=== PATIENT | male | born 1980 | race Caucasian/White ===

== ENCOUNTER 2023-03-02 10:31 | Emergency (ER) | payer BC, OTHER ==
[~2023-03-02] VITALS: Ht 170.2 cm; Wt 81.0 kg
[2023-03-02] MEDS ORDERED: DexAMETHasone SOD PHOS 10MG/1ML VIAL INJ IV ONE (11:00)
[2023-03-02] MEDS ORDERED: ALBUTEROL SULF 2.5 MG/0.5ML(0.5%) NEB SOLN HHN ONE (11:00)
[2023-03-02] MEDS ORDERED: IPRATROPIUM BROM 0.5 MG/2.5ML INH SOL HHN ONE (11:00)
[2023-03-02] MEDS ORDERED: ASPirin 81 mg TAB PO ONE (11:00)
[2023-03-02 11:16] VITALS: BP 120/83; PULSE 76; TEMP 98.1
[2023-03-02 11:25] LABS: Basophils # (auto) 0 10 ^3/uL (0-0.2); Basophils % (auto) 0.1 % (0.0-2.0); Eosinophils # (auto) 0.1 10 ^3/uL (0-0.8); Eosinophils % (auto) 1.1 % (0.0-7.0); Hematocrit 48.3 % (41.0-53.0); Hemoglobin 16.2 g/dL (13.5-17.5); Lymphocytes % (auto) 14.4 % (10.0-50.0); Mean Corpuscular Hemoglobin 30.2 pg (28.0-32.0); Mean Corpuscular Hgb Conc. 33.5 g/dL (32.0-36.0); Mean Corpuscular Volume 90.3 fL (80.0-100.0); Monocytes # (auto) 0.6 10 ^3/uL (0-1.3); Monocytes % (auto) 9.6 % (0.0-12.0); Neutrophils % (auto) 74.8 % (37.0-80.0); Nucleated Red Blood Cells % 0.1 %; Red Blood Cells 5.35 10^6/uL (4.5-5.90); Red Cell Distribution Width 13.2 % (11.8-14.3); White Blood Cell 6.6 10^3/uL (4.4-10.8)
[2023-03-02 11:44] LABS: Albumin 3.6 g/dL (3.4-5.0); Calcium 8.2 mg/dL (8.5-10.1)
[2023-03-02 11:47] LABS: BUN/Creatinine Ratio 21.1 (10.0-20.0); Bilirubin, Total 0.9 mg/dL (0.2-1.0); Total Protein 7.2 g/dL (6.4-8.2)
[2023-03-02 12:57] VITALS: RESP 18; O2SAT 98
[2023-03-02] MEDS ORDERED: METH4PAK PO (14:21)
== END 2023-03-02 14:46 | disposition home or self-care (01) ==
LOC: ER 10:31
DX: J45.901 Unspecified asthma with (acute) exacerbation (principal); R42 Dizziness and giddiness; R50.9 Fever, unspecified; F15.90 Other stimulant use, unspecified, uncomplicated
CPT/HCPCS: 36415; 71046; 80053; 84484; 85025; 93005; 94644; 96374; 99285; J1100; J7644

== ENCOUNTER 2023-07-16 18:10 | Emergency (ER) | payer BC ==
[~2023-07-16] VITALS: Ht 172.7 cm; Wt 79.0 kg
[~2023-07-16 18:10] MED LIST: METH4PAK PO
[2023-07-16 18:55] VITALS: O2SAT 94
[2023-07-16] MEDS ORDERED: ONDANSETRON ODT 4 MG TAB PO ONE (19:30)
[2023-07-16] MEDS ORDERED: MORPHINE SULFATE 4 MG/ML SYR/VIAL IM ONE (19:30)
[2023-07-16] MEDS ORDERED: CYCL-837 PO (20:16)
[2023-07-16 21:47] VITALS: BP 124/68; PULSE 73; RESP 17; TEMP 97.8
== END 2023-07-16 21:48 | disposition home or self-care (01) ==
LOC: ER 18:10
DX: M25.552 Pain in left hip (principal); M54.59 Other low back pain; F12.10 Cannabis abuse, uncomplicated; M62.838 Other muscle spasm; J44.9 Chronic obstructive pulmonary disease, unspecified; W22.8XXA Striking against or struck by other objects, initial encounter; Y93.89 Activity, other specified; Y92.89 Other specified places as the place of occurrence of the external cause; Y99.8 Other external cause status
CPT/HCPCS: 70450; 72192; 96372; 99285; J2270; Q0162